=== PATIENT | female | born 1985 | race Caucasian/White ===

== ENCOUNTER 2018-02-22 10:50 | Emergency (ER) | payer BC ==
[~2018-02-22] VITALS: Ht 165.1 cm; Wt 110.0 kg
[~2018-02-22 10:50] MED LIST: ALPR0.25 PO; LORTA5 PO; SERT50 PO; TRAM50 PO; TRI-TAB PO
[2018-02-22 11:06] VITALS: BP 174/99; PULSE 118; RESP 18; TEMP 98.9; O2SAT 98
[2018-02-22 11:42] LABS: BILIRUBIN, URINE NEG (NEG); BLOOD, URINE SMALL (NEG); GLUCOSE,URINE NEG (NEG); KETONE, URINE NEG (NEG); MUCUS URINE FEW /lpf (OCC); NITRITE,URINE NEG (NEG); SQUAMOUS EPITHELIAL CELL URINE 5 /hpf (0-5); URINE COLOR YELLOW (YELLW/STRAW); URINE LEUKOCYTE ESTERASE SMALL (NEG)
--- NOTE | 2018-02-22 11:55 | PD ---
HPI Chief Complaint: Abdominal Pain Time Seen by Provider: 11:28 Travel History International Travel<30 days: No Contact w/Intl Traveler<30days: No Traveled to known affect area: No History of Present Illness HPI 32-year-old female that presents to the ED for evaluation of right lower quadrant pain. Patient states that she has had this for a week. Per patient she has done her due diligence. She is actually follow-up with her [facility] [facility] doctor who has performed 2 ultrasounds as well as urinalysis have been negative for acute disease. Per patient she continues to have the right lower quadrant pain. She was given Percocet by Dr. Guillen the HADOOP ANALYST and this improved some of the symptoms but the pain keeps coming on and off. Patient is like a sharp pain that comes about 8 times every hour. She states that she does have a cyst on her ovary but she was told that is too small for it to be causing the discomfort that she is having. She states that the pain is mostly to the right lower quadrant does not move anywhere. She denies any blood in her urine. No urinary issues. No bowel movement issues. No history of kidney stones. She still has her appendix. She apparently contacted Dr. Murrieta who is apparently a family friend and he recommended that she gets a CAT scan. Should try to contact her primary care as well as Dr. Guillen to see if they could order a CAT scan for her to get it down without having to come to the ED and unfortunately were done in the office or in the middle of surgery. Thus she came here under the instructions of Dr. Murrieta to get a CT scan. She denies any medical issues other than chronic pain. She does have a history of high blood pressure. She denies any vaginal discharge. No . Per patient her pain currently is 3 out of 10. No other medical issues. No fevers chills or sweats. Allergies to codeine and ibuprofen. PFSH Past Medical History ?: Not Social History Alcohol Use: Yes (occassional) Tobacco Use: No Substance Use: No Allergies-Medications (Allergen,Severity, Reaction): Coded Allergies: codeine (Unverified Allergy, Mild, JITTERY, 06/22/17) ibuprofen (Unverified Allergy, Mild, HIVES, 06/22/17) Reported Meds & Prescriptions Reported Meds & Active Scripts Active Bactrim DS (Sulfamethoxazole-Trimethoprim) 800-160 Mg Tab 1 Tab PO BID 7 Days Reported Alprazolam 0.25 Mg Tab 0.25 Mg PO QID Hydrocodone/Acetaminophen 5 mg/325 mg 1 Tab Tab 1 Tab PO Q6H PRN Tri-Sprintec (Ethinyl Estradiol/Norgestimate) 1 Tab Tab 1 Tab PO DAILY Zoloft (Sertraline HCl) 50 Mg Tab 50 Mg PO DAILY Ultram (Tramadol HCl) 50 Mg Tab 1 Tab PO Q4HPRN FOR PAIN Review of Systems Except as stated in HPI: all other systems reviewed are Neg Physical Exam Narrative GENERAL: SKIN: Warm and dry. HEAD: Atraumatic. Normocephalic. EYES: Pupils equal and round. No scleral icterus. No injection or drainage. ENT: No nasal bleeding or discharge. Mucous membranes pink and moist. Tongue is midline. No uvula deviation. NECK: Trachea midline. No JVD. CARDIOVASCULAR: Regular rate and rhythm. No murmurs, S3, S4. RESPIRATORY: No accessory muscle use. Clear to auscultation. Breath sounds equal bilaterally. GASTROINTESTINAL: Abdomen soft, patient does have a reproducible right lower quadrant pain, nondistended. Hepatic and splenic margins not palpable. MUSCULOSKELETAL: Extremities without clubbing, cyanosis, or edema. No obvious deformities. Full range of motion of the upper and lower extremities bilaterally. 2+ pulses bilaterally. NEUROLOGICAL: Awake and alert. No obvious cranial nerve deficits. Motor grossly within normal limits. Five out of 5 muscle strength in the arms and legs. Normal speech. PSYCHIATRIC: Appropriate mood and affect; insight and judgment normal. Data Data Last Documented VS Vital Signs Date Time Temp Pulse Resp B/P (MAP) Pulse Ox O2 Delivery O2 Flow Rate FiO2 02/22/18 11:06 98.9 118 18 174/99 (124) 98 Orders Orders Complete Blood Count With Diff (02/22/18 11:08) Comprehensive Metabolic Panel (02/22/18 11:08) Lipase (02/22/18 11:08) Urinalysis - C+S If Indicated (02/22/18 11:08) Ed Urine Pregnancytest Poc (02/22/18 11:08) Ct Abd/Pel W Iv Contrast(Rout) (02/22/18 11:28) Iv Access Insert/Monitor (02/22/18 11:30) Oral Contrast - Adult (02/22/18 11:33) Diatrizoate Liq (Md Solomon Liq) (02/22/18 12:27) Diatrizoate Liq (Md Solomon Liq) (02/22/18 12:29) Morphine Inj (Morphine Inj) (02/22/18 13:45) Ondansetron Inj (Zofran Inj) (02/22/18 13:45) Iohexol 350 Inj (Omnipaque 350 Inj) (02/22/18 13:59) Ed Discharge Order (02/22/18 14:23) Labs Laboratory Tests Test 02/22/18 11:20 02/22/18 12:20 Urine Color YELLOW Urine Turbidity CLEAR Urine pH 6.0 Urine Specific [place] 1.015 Urine Protein NEG mg/dL Urine Glucose (UA) NEG mg/dL Urine Ketones NEG mg/dL Urine Occult Blood SMALL Urine Nitrite NEG Urine Bilirubin NEG Urine Urobilinogen LESS THAN 2.0 MG/DL Urine Leukocyte Esterase SMALL Urine RBC 3 /hpf Urine WBC 1 /hpf Urine Squamous Epithelial Cells 5 /hpf Urine Mucus FEW /lpf Microscopic Urinalysis Comment CULT NOT INDICATED White Blood Count 8.3 TH/MM3 Red Blood Count 4.32 MIL/MM3 Hemoglobin 13.5 GM/DL Hematocrit 39.4 % Mean Corpuscular Volume 91.3 FL Mean Corpuscular Hemoglobin 31.3 PG Mean Corpuscular Hemoglobin Concent 34.3 % Red Cell Distribution Width 13.0 % Platelet Count 382 TH/MM3 Mean Platelet Volume 6.9 FL Neutrophils (%) (Auto) 50.8 % Lymphocytes (%) (Auto) 37.7 % Monocytes (%) (Auto) 6.7 % Eosinophils (%) (Auto) 4.2 % Basophils (%) (Auto) 0.6 % Neutrophils # (Auto) 4.2 TH/MM3 Lymphocytes # (Auto) 3.1 TH/MM3 Monocytes # (Auto) 0.6 TH/MM3 Eosinophils # (Auto) 0.3 TH/MM3 Basophils # (Auto) 0.0 TH/MM3 CBC Comment DIFF FINAL Differential Comment Blood Urea Nitrogen 11 MG/DL Creatinine 0.79 MG/DL Random Glucose 98 MG/DL Total Protein 7.4 GM/DL Albumin 4.0 GM/DL Calcium Level 9.3 MG/DL Alkaline Phosphatase 68 U/L Aspartate Amino Transf (AST/SGOT) 14 U/L Alanine Aminotransferase (ALT/SGPT) 28 U/L Total Bilirubin 0.1 MG/DL Sodium Level 139 MEQ/L Potassium Level 4.0 MEQ/L Chloride Level 105 MEQ/L Carbon Dioxide Level 27.4 MEQ/L Anion Gap 7 MEQ/L Estimat Glomerular Filtration Rate 83 ML/MIN Lipase 79 U/L [facility] Medical Decision Making Medical Screen Exam Complete: Yes Emergency Medical Condition: Yes Medical Record Reviewed: Yes Interpretation(s) CBC & BMP Diagram 02/22/18 12:20 Total Protein 7.4, Albumin 4.0, Calcium Level 9.3, Alkaline Phosphatase 68, Aspartate Amino Transf (AST/SGOT) 14 L, Alanine Aminotransferase (ALT/SGPT) 28, Total Bilirubin 0.1 L Last Impressions Abdomen/Pelvis CT 02/22/18 1128 Signed Impressions: Service Date/Time: Thursday, February 22, 2018 13:56 - CONCLUSION: 1. Normal appendix. 2. There is some wall thickening and dilatation of the terminal ileum without acute inflammatory process. 3. Intrauterine device. 4. Small hiatal hernia. Izaiah Romero MD lipase WNL UA shows blood, leukerase esterase and bacteria Differential Diagnosis Kidney stone versus UTI versus pyelonephritis versus appendicitis versus acute abdomen versus acute on chronic pain versus muscle strain versus colitis Narrative Course 32-year-old female that presents to the ED for evaluation of right lower quadrant pain. Patient was properly examined and was found to have signs and symptoms concerning for appendicitis versus kidney stone. Labs and imaging order. Labs and imaging showed no sign of acute disease other than what appears to be some blood in the urine as well as leukocyte esterase and bacteria. Questionable UTI. Appendix appears to be normal. CT did show some inflammation of the ileus but unclear etiology. No sign of other disease. Normal appendix. My attending Dr. amador was made aware of findings and she will read the CAT scan herself. She agrees with this finding. She agrees the patient can be discharged with follow-up instructions. Patient agrees with plan. Patient was given a prescription for Bactrim to cover for bacterial infection. See ED worsening symptoms. Follow-up with PCP. Diagnosis Primary Impression: RLQ abdominal pain Additional Impression: UTI (urinary tract infection) Qualified Codes: N30.01 - Acute cystitis with hematuria Patient Instructions: General Instructions Additional Instructions: Take medication as prescribed. Follow-up with GI. See ED worsening symptoms. Follow up with PCP. Med/Other Pt SpecificInfo: Prescription(s) given Scripts Sulfamethoxazole-Trimethoprim (Bactrim DS) 800-160 Mg Tab 1 TAB PO BID for Infection for 7 Days, #14 TAB 0 Refills Prov: Sofia Barry MD 02/22/18 Disposition: 01 DISCHARGE HOME Condition: Stable Jose Crump Feb 22, 2018 11:55
[2018-02-22] MEDS ORDERED: DIATRIZOATE MEGLUM/DIATRIZOATE SOD 9 ML CUP ONE ×2 (12:27→12:29)
[2018-02-22 12:37] LABS: AUTOMATED NEUTROPHIL # 4.2 TH/MM3 (1.8-7.7); BASOPHIL % 0.6 % (0.0-2.0); EOSINOPHIL # 0.3 TH/MM3 (0-0.4); EOSINOPHIL % 4.2 % (0.0-4.0); HEMATOCRIT 39.4 % (35.0-46.0); HEMOGLOBIN 13.5 GM/DL (11.6-15.3); LYMPH % 37.7 % (9.0-44.0); LYMPHOCYTE # 3.1 TH/MM3 (1.0-4.8); MEAN CELL VOLUME 91.3 FL (80.0-100.0); MEAN CORPUSCULAR HEMOGLOBIN 31.3 PG (27.0-34.0); MEAN CORPUSCULAR HGB CONC 34.3 % (32.0-36.0); MEAN PLATELET VOLUME 6.9 FL (7.0-11.0); MONO % 6.7 % (0.0-8.0); MONOCYTE # 0.6 TH/MM3 (0-0.9); NEUT % 50.8 % (16.0-70.0); PLATELET COUNT 382 TH/MM3 (150-450); RED BLOOD COUNT 4.32 MIL/MM3 (4.00-5.30); WHITE BLOOD COUNT 8.3 TH/MM3 (4.0-11.0)
[2018-02-22 12:53] LABS: ALT (GPT) 28 U/L (10-53); AST (GOT) 14 U/L (15-37); BICARBONATE 27.4 MEQ/L (21.0-32.0); BLOOD UREA NITROGEN 11 MG/DL (7-18); CALCIUM 9.3 MG/DL (8.5-10.1); CHLORIDE 105 MEQ/L (98-107); CREATININE 0.79 MG/DL (0.50-1.00); GLOMERULAR FILTRATION RATE 83 ML/MIN (>89); GLUCOSE,RANDOM 98 MG/DL (74-106); SODIUM (NA) 139 MEQ/L (136-145)
[2018-02-22 12:56] LABS: ALKALINE PHOSPHATASE 68 U/L (45-117); TOTAL BILIRUBIN ADULT 0.1 MG/DL (0.2-1.0); TOTAL PROTEIN 7.4 GM/DL (6.4-8.2)
[2018-02-22] MEDS ORDERED: MORPHINE SULFATE 2 MG/ML SYRINGE IV PUSH ONE (13:45)
[2018-02-22] MEDS ORDERED: ONDANSETRON HCL 4 MG/2 ML VIAL IV PUSH ONE (13:45)
[2018-02-22] MEDS ORDERED: IOHEXOL 350 MG/ML 10 ML VIAL (for RAD DIAG) IVCONTRAST ONE (13:59)
--- NOTE | 2018-02-22 14:13 | RADRPT ---
EXAM DATE/TIME: 02/22/2018 13:56 [facility] COMPARISON: No previous studies available for comparison. INDICATIONS : Right lower quadrant pain. IV CONTRAST: 85 cc Omnipaque 350 (iohexol) IV ORAL CONTRAST: Prescribed oral contrast ingested. RADIATION DOSE: 20.62 CTDIvol (mGy) MEDICAL HISTORY : None SURGICAL HISTORY : None. ENCOUNTER: Initial ACUITY: 1 day PAIN SCALE: 4/10 LOCATION: Right lower quadrant TECHNIQUE: Volumetric scanning of the abdomen and pelvis was performed. Using automated exposure control and ad justment of the mA and/or kV according to patient size, radiation dose was kept as low as reasonably achievable to obtain optimal diagnostic quality images. DICOM format image data is available electro nically for review and comparison. FINDINGS: LOWER LUNGS: The visualized lower lungs are clear. LIVER: Homogeneous density without lesion. There is no dilation of the biliary tree. No calcified gallston es. SPLEEN: Normal size without lesion. PANCREAS: Within normal limits. KIDNEYS: Normal in size and shape. There is no mass, stone or hydronephrosis. ADRENAL GLANDS: Within normal limits. VASCULAR: There is no aortic aneurysm. BOWEL/MESENTERY: The colon demonstrate no acute abnormality. There is no free intraperitoneal air or fluid. Small hia sofía hernia. Normal appendix is normal. There is some dilatation and wall thickening of the terminal i leum. No adjacent inflammatory changes ABDOMINAL WALL: Within normal limits. RETROPERITONEUM: There is no lymphadenopathy. BLADDER: No wall thickening or mass. REPRODUCTIVE: Within normal limits. Intrauterine device. INGUINAL: There is no lymphadenopathy or hernia. MUSCULOSKELETAL: Within normal limits for patient age. CONCLUSION: 1. Normal appendix. 2. There is some wall thickening and dilatation of the terminal ileum without acute inflammatory proc ess. 3. Intrauterine device. 4. Small hiatal hernia. Izaiah Romero MD on February 22, 2018 at 14:08 Board Certified Radiologist. This report was verified electronically.
[2018-02-22] MEDS ORDERED: BACT800T5 PO (14:19)
[2018-02-22 15:21] VITALS: BP 132/86
== END 2018-02-22 15:23 | disposition home or self-care (01) ==
LOC: NEPC 10:50
DX: N30.01 Acute cystitis with hematuria (principal)
CPT/HCPCS: 74177; 80053; 81001; 83690; 84703; 85025; 96374; 96375; 99284; J2270; J2405; Q9963; Q9967